=== PATIENT | female | born 1975 | race Caucasian/White ===

== ENCOUNTER → 2016-10-21 | Outpatient (CLI) | payer BC ==
[~2016-10-21] MED LIST: AMIT50TA3 PO; ASPI81TA28 PO; CYAN1LOZ PO; CYCL10TA6 PO; CYM/30 PO; EXEN0.048 SC; GABA-113 PO; INSDGI SC; NEBI10TA2 PO; OXYC1TAB3 PO; PRAV20TA PO; SPIR25TA PO
== END ==
LOC: C.PAIN 12:16
PROVIDERS: ATTEND Anesthesiology

== ENCOUNTER → 2017-01-01 | Outpatient (CLI) | payer BC ==
[2017-01-01 14:03] LABS: URINE APPEARANCE CLEAR (CLEAR); URINE BILIRUBIN NEG (NEG); URINE COLOR YELLOW; URINE EPITHELIAL CELL AUTO >30 /lpf (0-5); URINE NITRITE NEG (NEG); URINE PH 7.5 (4.5-7.5); URINE SPECIFIC GRAVITY 1.021 (1.000-1.030); UROBILINOGEN NEG (NEG)
[2017-01-01 14:07] LABS: MANUAL MICROSCOPIC REQUIRED? NO; REVIEW REQ? NO
== END | disposition home or self-care (01) ==
LOC: C.LABBC 11:31
PROVIDERS: ATTEND Anesthesiology
DX: R10.9 Unspecified abdominal pain (principal)

== ENCOUNTER → 2017-10-04 | Outpatient (CLI) | payer OTHER ==
[~2017-10-04] MED LIST changes: +EVENCAP6 PO; -EXEN0.048 SC; +GADAVIST IV PRN; -INSDGI SC; +[UNRECOGNIZED DRUG - OTHER] PO
--- NOTE | 2017-10-04 10:07 | DIAGNOSTIC IMAGING REPORT ---
CERVICAL SPINE COMBO CLINICAL HISTORY: 42 years-old Female presenting with CERVICAL RADICULOPATHY, history of fall and color accident, pain in the shoulders and neck, prior cervical fusion, no history of cancer, spinal cord stimulator in place. TECHNIQUE: Multisequence, multiplanar MR imaging of the cervical spine was performed before and after the administration of intravenous contrast. IV contrast: 9.5 mL of Gadavist. COMPARISON: None. FINDINGS: Localizer images: Unremarkable. Straightening of normal cervical lordosis possibly in part positional as well as secondary to degenerative change. Anterior cervical discectomy and fusion of C6-7. Remaining vertebral bodies demonstrate normal height and alignment. Minimal endplate edema noted at C5-6. There is also focal degenerative change at C5-6 with a prominent disc osteophyte complex. Extending from the posterior aspect of the disc space at C5-6 there is a central/right paracentral protrusion resulting in severe effacement of the ventral thecal sac and mass effect on the central and right paracentral spinal cord. No demonstrable abnormal signal intensity of the spinal cord at this level or convincing evidence of atrophy. There is also effacement of the right lateral recess, which may abut the exiting right C6 nerve roots. The remaining levels demonstrate no significant spinal canal or neural foraminal narrowing. Craniocervical junction normal. Paraspinal soft tissues normal. Postcontrast imaging demonstrates significant enhancement along the ventral epidural space at C5-6 and central nonenhancement of an ovoid 10 x 6 x 8 mm region. No abnormal paraspinal enhancement at this level. IMPRESSION: 1. Focal abnormality at C5-6 with a disc osteophyte complex and prominent centrally nonenhancing region in the ventral epidural space. Differential considerations include nonenhancing disc protrusion versus less likely epidural abscess. The lack of significant fluid signal intensity within the C5-6 disc suggests against infectious discitis. The effacement of the ventral thecal sac at this level results in mass effect on the the central and right paracentral spinal cord raising concern for impingement. 2. Postsurgical changes of C6-7 ACDF. The report will be called/faxed according to standard departmental protocol. Electronically signed by: Kyle Wood M.D. 10/04/2017 10:05 AM Dictated Date/Time: 10/04/2017 9:57 AM
== END | disposition home or self-care (01) ==
LOC: C.MRIBC 08:24
PROVIDERS: ATTEND Physician Assistant Medical
DX: M54.12 Radiculopathy, cervical region (principal); M25.78 Osteophyte, vertebrae

== ENCOUNTER → 2017-11-03 | Outpatient (CLI) | payer OTHER ==
[~2017-11-03] MED LIST changes: -GADAVIST IV PRN
--- NOTE | 2017-11-03 10:17 | DIAGNOSTIC IMAGING REPORT ---
L-SPINE MIN 4 VIEWS ROUTINE HISTORY: 42 years-old Female LUMBAGO chronic low back pain COMPARISON: Lumbar spine radiographs 04/15/2016 TECHNIQUE: 5 views of the lumbar spine FINDINGS: 5 lumbar type vertebral segments are present. 3 mm retrolisthesis L2 on L3 which appears new from comparison. Prior posterior decompression with interbody josiane and screw fusion at L3-S1 with associated discectomy changes. No evidence of hardware fracture or loosening. Multilevel endplate spurring. No acute fracture identified. Battery pack from a near the ostomy device projects over the right gluteal region. There are 2 leads present which extends superiorly entering the central canal at T9-T10. Soft tissues are unremarkable. IMPRESSION: 1. No acute fracture. 2. Postoperative changes from posterior decompression with interbody josiane and screw fusion and discectomy at L3-S1. No evidence of hardware fracture or loosening. 3. 3 mm retrolisthesis L2 on L3 appears new from prior study dated 04/15/2016. The above report was generated using voice recognition software. It may contain grammatical, syntax or spelling errors. Electronically signed by: Wayne Sellers M.D. 11/03/2017 10:16 AM Dictated Date/Time: 11/03/2017 10:12 AM
== END | disposition home or self-care (01) ==
LOC: C.RADBC 09:53
PROVIDERS: ATTEND Physician Assistant Medical
DX: M54.5 Low back pain (principal); Z98.1 Arthrodesis status

== ENCOUNTER → 2018-02-14 | Outpatient (CLI) | payer OTHER ==
[~2018-02-14] MED LIST changes: +BSP15 PO; +CARV12.5 PO; +CRG125; +DFL150; +NALT50TA16; -NEBI10TA2 PO; +OXYC-90 PO; -OXYC1TAB3 PO
--- NOTE | 2018-02-14 08:49 | DIAGNOSTIC IMAGING REPORT ---
THORACOLUMBAR SPINE 2 VIEWS HISTORY: 42 years-old Female CHECK STIMULATOR PLACEMENT status post placement of a neurostimulator device COMPARISON: Lumbar spine radiographs 01/04/2018 TECHNIQUE: 5 views of the thoracolumbar spine FINDINGS: Mild convex left curvature about the mid lumbar spine redemonstrated. Prior laminectomy with posterior interbody josiane and screw fusion with discectomy changes at L3-L4, L4-L5 and L5-S1. No evidence of hardware fracture or loosening. 3 mm retrolisthesis L3 on L4 is unchanged. Multilevel posterior intervertebral disc space narrowing with spondylitic spurring and mild facet arthrosis. No acute fracture or subluxation. Battery pack from a neurostimulator device projects over the right gluteal tissues. There are 2 leads present which enter the central canal at T9-T10 and extend superiorly with distal tips posterior to the T7-T8 disc space. The leads appear to be intact on these images. Moderate formed colonic stool suggests probable constipation. IMPRESSION: 1. No acute fracture or subluxation. 2. Prior laminectomy with posterior interbody josiane and screw fusion and discectomy at L3-S1. 3. Neurostimulator device is above. The above report was generated using voice recognition software. It may contain grammatical, syntax or spelling errors. Electronically signed by: Wayne Sellers M.D. 02/14/2018 8:48 AM Dictated Date/Time: 02/14/2018 8:43 AM
== END | disposition home or self-care (01) ==
LOC: C.RADBC 08:26
PROVIDERS: ATTEND Physician Assistant Medical
DX: Z96.89 Presence of other specified functional implants (principal)

== ENCOUNTER → 2018-02-21 | Outpatient (CLI) | payer OTHER ==
[~2018-02-21] MED LIST changes: +GADAVIST IV PRN
--- NOTE | 2018-02-21 11:03 | DIAGNOSTIC IMAGING REPORT ---
MRI OF THE LUMBAR SPINE WITH AND WITHOUT CONTRAST CLINICAL HISTORY: Left lumbar radiculopathy. Recent fall. COMPARISON STUDY: Lumbar spine MRI December 29, 2014. TECHNIQUE: Utilizing a 1.5 Bernice magnet and dedicated coil, multiplanar, multiecho imaging of the lumbar spine was performed before and after uneventful IV administration of 9.7 mL of Gadavist. FINDINGS: For purposes of numbering on this exam, the L5-S1 disc space is assigned to axial image 27 of 30. There are postsurgical findings consistent with a posterior decompression and bilateral pedicle screw fusion from L3 through S1. Discectomy with interbody spacer placement at the L3-L4, L4-L5 and L5-S1 levels is noted. Vertebral body heights are maintained. There are multiple Schmorl's nodes. There is no suspicious marrow replacement. No intracanalicular mass or fluid collection is noted. The stimulator is not completely imaged on this exam. Conus terminates at the mid L1 level. No abnormal enhancement within the canal is noted on postcontrast images. This study is mildly compromised by motion artifact and artifact from the surgical hardware. L1-2: There is mild disc bulge. Central canal, lateral recesses and neural foramen are patent. L2-3: There is disc space narrowing with disc bulge. There is mild to moderate narrowing of the central canal, lateral recesses and neural foramen. This has increased since MRI of December 19, 2014. L3-4: Central canal neural foramen are patent. L4-5: The central canal neural foramen are patent. L5-S1: The central canal and neural foramen are patent. IMPRESSION: 1. Status post L3-S1 posterior decompression, bilateral pedicle screw fusion and discectomy. 2. Disc bulge at L2-L3 with facet arthrosis and ligamentous hypertrophy that result in mild to moderate narrowing of the central canal, lateral recesses and neural foramen. No severe central canal stenosis. 3. No lumbar spine compression fracture. Electronically signed by: Wisam Mills M.D. 02/21/2018 11:01 AM Dictated Date/Time: 02/21/2018 10:52 AM
== END | disposition home or self-care (01) ==
LOC: C.MRIBC 08:33
PROVIDERS: ATTEND Physician Assistant Medical
DX: M54.16 Radiculopathy, lumbar region (principal); M51.26 Other intervertebral disc displacement, lumbar region; M43.16 Spondylolisthesis, lumbar region; M48.061 Spinal stenosis, lumbar region without neurogenic claudication